=== PATIENT | female | born 1980 | race Caucasian/White ===

== ENCOUNTER 2021-10-23 13:28 | Inpatient (IN) ==
[2021-10-23] MEDS ORDERED: Naloxone 0.4 MG/ML INJ IVP PRN (16:41)
[2021-10-23] MEDS ORDERED: Melatonin 3 MG TABLET PO PRN (16:41)
[2021-10-23] MEDS: Prochlorperazine 10 MG/2 ML VIAL IVP PRN (17:18)
[2021-10-23] MEDS: Ampicillin/Sulbactam 3,000 MG in 0.9 % Sodium Chloride Mini Bag 100 ML IVPB SCH (17:19)
[2021-10-23] MEDS: Ringers Solution, Lactated 1,000 ML IVC SCH (19:16)
[2021-10-23 22:00] LABS: Adenovirus Not Detected (Not Detect); Bordetella Pertussis Not Detected (Not Detect); Chlamydophila pneumoniae Not Detected (Not Detect); Coronavirus 229E Not Detected (Not Detect); Coronavirus HKU1 Not Detected (Not Detect); Coronavirus NL63 Not Detected (Not Detect); Coronavirus OC43 Not Detected (Not Detect); Human Metapneumovirus Not Detected (Not Detect); Human Rhinovirus/Enterovirus Not Detected (Not Detect); Influenza A Subtype 2009 H1 Not Detected (Not Detect); Influenza B Not Detected (Not Detect); Mycoplasma pneumoniae Not Detected (Not Detect); Parainfluenza Virus 1 Not Detected (Not Detect); Parainfluenza Virus 2 Not Detected (Not Detect); Parainfluenza Virus 3 Not Detected (Not Detect); Parainfluenza Virus 4 Not Detected (Not Detect); Respiratory Syncytial Virus Not Detected (Not Detect); SARS-CoV-2 Not Detected (Not Detect)
[2021-10-23] MEDS: clonazePAM 1 MG TABLET PO SCH (22:39)
[2021-10-23] MEDS: Gabapentin 300 MG CAPSULE PO SCH (22:39)
[2021-10-23 23:11] LABS: C.difficile Toxin A/B Gene PCR Not detected (Not detect); Campylobacter by PCR Not detected (Not detect); Enteroaggregative E.coli(EAEC) Not detected (Not detect); Enteropathogenic E.coli(EPEC) Not detected (Not detect); Enterotoxigenic E.coli (ETEC) Not detected (Not detect); Plesiomonas shigelloides PCR Not detected (Not detect); Salmonella PCR Not detected (Not detect); Vibrio PCR Not detected (Not detect); Vibrio cholerae PCR Not detected (Not detect); Yersinia enterocolitica PCR Not detected (Not detect)
[2021-10-23 23:12] LABS: Adenovirus F 40/41 PCR Not detected (Not detect); Astrovirus PCR Not detected (Not detect); Cryptosporidium by PCR Not detected (Not detect); Cyclospora cayetanensis PCR Not detected (Not detect); Entamoeba histolytica PCR Not detected (Not detect); Giardia lamblia PCR Not detected (Not detect); Norovirus GI/GII PCR Not detected (Not detect); Rotavirus A PCR Not detected (Not detect); Sapovirus PCR Not detected (Not detect); Shig/EnteroinvasiveE coli EIEC Not detected (Not detect); Shigalike tox-prod E coli STEC Not detected (Not detect)
[2021-10-24] MEDS: Ampicillin/Sulbactam 3,000 MG in 0.9 % Sodium Chloride Mini Bag 100 ML IVPB SCH ×5 (00:30→23:10)
[2021-10-24] MEDS: Prochlorperazine 10 MG/2 ML VIAL IVP PRN ×2 (00:41→09:29)
[2021-10-24 02:09] LABS: Basophils % 0.4 %; Eosinophils # 0.2 K/mcL (0.0-0.6); Eosinophils % 1.9 %; Hematocrit 31.7 % (35.3-44.9); Immature Granulocytes % 0.4 % (0-4); Lymphocytes # 2.7 K/mcL (0.6-4.6); Lymphocytes % 26.2 %; Mean Corpuscular HGB Conc 34.7 g/dL (31.6-35.5); Mean Corpuscular Hemoglobin 32.3 pg (28.0-33.3); Mean Platelet Volume 11.3 fL (9.4-12.4); Monocytes # 0.7 K/mcL (0.0-1.3); Monocytes % 6.3 %; Neutrophils # 6.8 K/mcL (1.6-8.9); Platelet Count 253 K/mcL (140-400); Red Blood Count 3.41 M/mcL (3.82-4.97); Red Cell Distribution Width 12.2 % (11.5-14.5); Segmented Neutrophils % 64.8 %; White Blood Count 10.5 K/mcL (4.3-11.1)
[2021-10-24 02:16] LABS: INR 1.2; Prothrombin Time 13.3 Seconds (9.4-12.1)
[2021-10-24 02:36] LABS: Alanine Aminotransferase 10 Units/L (7-52); Albumin 2.8 g/dL (3.5-5.7); Albumin/Globulin Ratio 1.2 (1.1-2.2); Alkaline Phosphatase 58 Units/L (34-104); Aspartate Amino Transferase 8 Units/L (13-39); BUN/Creatinine Ratio 17 (6-26); Bilirubin,Direct 0.1 mg/dL (0.0-0.2); Bilirubin,Indirect 0.2 mg/dL (0.0-1.0); Bilirubin,Total 0.3 mg/dL (0.3-1.0); Blood Urea Nitrogen 10 mg/dL (6-20); Calcium 7.9 mg/dL (8.6-10.3); Carbon Dioxide 22 mEq/L (23-29); Chloride 109 mEq/L (98-107); Globulin 2.4 g/dL (2.4-3.5); Glucose 94 mg/dL (70-105); Magnesium 1.7 mg/dL (1.6-2.6); Osmolality,Calculated 285 (280-300); Phosphorous 1.7 mg/dL (2.7-4.5); Potassium 3.3 mEq/L (3.5-5.1); Sodium 138 mEq/L (136-145); Total Protein 5.2 g/dL (6.4-8.9); eGFR For African Americans > 60 (> 60); eGFR For Non-African Americans > 60 (> 60)
[2021-10-24] MEDS: Ringers Solution, Lactated 1,000 ML IVC SCH (05:26)
[2021-10-24] MEDS: *HR* Enoxaparin 40 MG/0.4 ML SYRINGE SQ SCH (05:27)
[2021-10-24] MEDS: Acetaminophen 325 MG TABLET PO PRN (05:33)
[2021-10-24] MEDS: clonazePAM 1 MG TABLET PO SCH ×2 (08:16→23:09)
[2021-10-24] MEDS: Gabapentin 300 MG CAPSULE PO SCH ×3 (08:16→23:10)
[2021-10-24] MEDS ORDERED: Morphine Sulfate 2 MG/ML SYRINGE IVP PRN (11:14)
[2021-10-24] MEDS: tiZANidine 4 MG TABLET PO PRN (12:58)
[2021-10-25] MEDS: Ampicillin/Sulbactam 3,000 MG in 0.9 % Sodium Chloride Mini Bag 100 ML IVPB SCH ×4 (05:50→23:32)
[2021-10-25] MEDS: *HR* Enoxaparin 40 MG/0.4 ML SYRINGE SQ SCH (05:50)
[2021-10-25 06:24] LABS: Basophils # 0.1 K/mcL (0.0-0.2); Basophils % 0.5 %; Eosinophils # 0.1 K/mcL (0.0-0.6); Eosinophils % 1.1 %; Hematocrit 35.3 % (35.3-44.9); Hemoglobin 12.2 g/dL (11.5-15.4); Immature Granulocytes % 1.3 % (0-4); Lymphocytes # 2.4 K/mcL (0.6-4.6); Lymphocytes % 25.2 %; Mean Corpuscular HGB Conc 34.6 g/dL (31.6-35.5); Mean Corpuscular Hemoglobin 31.9 pg (28.0-33.3); Mean Corpuscular Volume 92.4 fL (83.0-100.0); Mean Platelet Volume 10.5 fL (9.4-12.4); Monocytes % 10.1 %; Neutrophils # 5.9 K/mcL (1.6-8.9); Platelet Count 312 K/mcL (140-400); Red Blood Count 3.82 M/mcL (3.82-4.97); Red Cell Distribution Width 12.1 % (11.5-14.5); Segmented Neutrophils % 61.8 %; White Blood Count 9.6 K/mcL (4.3-11.1)
[2021-10-25] MEDS: Gabapentin 300 MG CAPSULE PO SCH ×3 (09:33→21:33)
[2021-10-25] MEDS: clonazePAM 1 MG TABLET PO SCH ×2 (09:33→21:33)
[2021-10-25] MEDS: tiZANidine 4 MG TABLET PO PRN (09:33)
[2021-10-25] MEDS: Prochlorperazine 10 MG/2 ML VIAL IVP PRN ×2 (09:38→21:40)
[2021-10-25] MEDS: Cholestyramine 4 GM POWD.PACK PO SCH (12:27)
[2021-10-25] MEDS: Ringers Solution, Lactated 1,000 ML IVC SCH ×2 (13:45→22:11)
[2021-10-25] MEDS ORDERED: tiZANidine 4 MG TABLET PO PRN (16:51)
[2021-10-25] MEDS ORDERED: Morphine Sulfate 2 MG/ML SYRINGE IVP PRN (16:52)
[2021-10-26] MEDS: Ampicillin/Sulbactam 3,000 MG in 0.9 % Sodium Chloride Mini Bag 100 ML IVPB SCH (05:43)
[2021-10-26] MEDS: *HR* Enoxaparin 40 MG/0.4 ML SYRINGE SQ SCH (05:44)
[2021-10-26] MEDS: Cholestyramine 4 GM POWD.PACK PO SCH ×2 (05:44→17:26)
[2021-10-26] MEDS: clonazePAM 1 MG TABLET PO SCH ×2 (08:21→20:35)
[2021-10-26] MEDS: Gabapentin 300 MG CAPSULE PO SCH ×3 (08:21→20:36)
[2021-10-26 08:46] LABS: Basophils # 0.1 K/mcL (0.0-0.2); Basophils % 0.6 %; Eosinophils # 0.1 K/mcL (0.0-0.6); Eosinophils % 0.6 %; Hematocrit 34.2 % (35.3-44.9); Hemoglobin 11.6 g/dL (11.5-15.4); Immature Granulocytes % 1.3 % (0-4); Lymphocytes % 31.2 %; Mean Corpuscular HGB Conc 33.9 g/dL (31.6-35.5); Mean Corpuscular Hemoglobin 31.4 pg (28.0-33.3); Mean Corpuscular Volume 92.4 fL (83.0-100.0); Mean Platelet Volume 10.3 fL (9.4-12.4); Monocytes # 1.5 K/mcL (0.0-1.3); Neutrophils # 4.3 K/mcL (1.6-8.9); Nucleated Red Blood Cells 0.3 /100 WBC (0); Platelet Count 306 K/mcL (140-400); Red Cell Distribution Width 12.1 % (11.5-14.5); Segmented Neutrophils % 49.3 %; White Blood Count 8.8 K/mcL (4.3-11.1)
[2021-10-26 08:54] LABS: Lymphocytes # 2.8 K/mcL (0.6-4.6)
[2021-10-26] MEDS ORDERED: Ringers Solution, Lactated 1,000 ML IVC SCH (09:00)
[2021-10-26 09:08] LABS: BUN/Creatinine Ratio 4 (6-26); Blood Urea Nitrogen 2 mg/dL (6-20); Calcium 7.9 mg/dL (8.6-10.3); Carbon Dioxide 28 mEq/L (23-29); Chloride 102 mEq/L (98-107); Glucose 118 mg/dL (70-105); Osmolality,Calculated 281 (280-300); Potassium 2.8 mEq/L (3.5-5.1); Sodium 137 mEq/L (136-145); eGFR For African Americans > 60 (> 60); eGFR For Non-African Americans > 60 (> 60)
[2021-10-26 09:28] LABS: Platelet Estimate Normal (Normal)
[2021-10-26] MEDS: cefTRIAXone 1,000 MG in 0.9 % Sodium Chloride 10 ML IVP SCH (11:47)
[2021-10-26] MEDS: Ringers Solution, Lactated 1,000 ML IVC SCH ×2 (11:49→17:26)
[2021-10-26] MEDS ORDERED: Cholestyramine 4 GM POWD.PACK PO SCH (15:00)
[2021-10-26] MEDS: MetroNIDAZOLE 500 MG/100 ML 500 MG/100 ML BAG IVPB SCH ×2 (15:38→23:55)
[2021-10-26 16:23] LABS: Bilirubin,Urine Negative (Negative); Blood,Urine Negative (Negative); Clarity,Urine Clear (Clear); Color,Urine Colorless (Yellow); Glucose,Urine (UA) Normal (Normal); Ketones,Urine 40 mg/dL (Negative); Leukocyte Esterase,Urine Negative (Negative); Nitrite,Urine Negative (Negative); Protein,Urine Negative (Neg-Trace); Specific Gravity,Urine 1.011 (1.010-1.025); Urobilinogen,Urine Normal (Normal)
[2021-10-27] MEDS: *HR* Enoxaparin 40 MG/0.4 ML SYRINGE SQ SCH (05:17)
[2021-10-27] MEDS: Prochlorperazine 10 MG/2 ML VIAL IVP PRN (05:33)
[2021-10-27] MEDS: Cholestyramine 4 GM POWD.PACK PO SCH ×2 (06:26→17:11)
[2021-10-27 07:27] LABS: Hematocrit 32.2 % (35.3-44.9); Hemoglobin 10.7 g/dL (11.5-15.4); Mean Corpuscular HGB Conc 33.2 g/dL (31.6-35.5); Mean Corpuscular Hemoglobin 31.2 pg (28.0-33.3); Mean Corpuscular Volume 93.9 fL (83.0-100.0); Mean Platelet Volume 10.2 fL (9.4-12.4); Monocytes # 1.2 K/mcL (0.0-1.3); Nucleated Red Blood Cells 0.2 /100 WBC (0); Platelet Count 348 K/mcL (140-400); Red Blood Count 3.43 M/mcL (3.82-4.97); Red Cell Distribution Width 12.2 % (11.5-14.5); White Blood Count 9.9 K/mcL (4.3-11.1)
[2021-10-27 07:50] LABS: BUN/Creatinine Ratio 8 (6-26); Blood Urea Nitrogen 4 mg/dL (6-20); Calcium 8.1 mg/dL (8.6-10.3); Carbon Dioxide 25 mEq/L (23-29); Chloride 103 mEq/L (98-107); Glucose 131 mg/dL (70-105); Osmolality,Calculated 281 (280-300); Potassium 3.4 mEq/L (3.5-5.1); Sodium 136 mEq/L (136-145); eGFR For African Americans > 60 (> 60); eGFR For Non-African Americans > 60 (> 60)
[2021-10-27 08:06] LABS: Eosinophils # 0.2 K/mcL (0.0-0.6); Lymphocytes # 1.8 K/mcL (0.6-4.6); Neutrophils # 6.7 K/mcL (1.6-8.9); Platelet Estimate Normal (Normal)
[2021-10-27] MEDS: Gabapentin 300 MG CAPSULE PO SCH ×3 (08:42→20:24)
[2021-10-27] MEDS: MetroNIDAZOLE 500 MG/100 ML 500 MG/100 ML BAG IVPB SCH ×3 (08:42→23:49)
[2021-10-27] MEDS: Ringers Solution, Lactated 1,000 ML IVC SCH ×2 (08:42→20:24)
[2021-10-27] MEDS: clonazePAM 1 MG TABLET PO SCH ×2 (08:42→21:58)
[2021-10-27] MEDS: cefTRIAXone 1,000 MG in 0.9 % Sodium Chloride 10 ML IVP SCH (11:33)
[2021-10-28 03:23] LABS: Basophils % 0.3 %; Eosinophils # 0.2 K/mcL (0.0-0.6); Eosinophils % 2.1 %; Hematocrit 30.6 % (35.3-44.9); Hemoglobin 10.3 g/dL (11.5-15.4); Immature Granulocytes % 0.6 % (0-4); Lymphocytes # 3.3 K/mcL (0.6-4.6); Lymphocytes % 34.1 %; Mean Corpuscular HGB Conc 33.7 g/dL (31.6-35.5); Mean Corpuscular Hemoglobin 31.5 pg (28.0-33.3); Mean Corpuscular Volume 93.6 fL (83.0-100.0); Mean Platelet Volume 9.9 fL (9.4-12.4); Monocytes # 0.7 K/mcL (0.0-1.3); Monocytes % 7.2 %; Neutrophils # 5.3 K/mcL (1.6-8.9); Platelet Count 341 K/mcL (140-400); Red Blood Count 3.27 M/mcL (3.82-4.97); Red Cell Distribution Width 12.1 % (11.5-14.5); Segmented Neutrophils % 55.7 %; White Blood Count 9.6 K/mcL (4.3-11.1)
[2021-10-28 03:44] LABS: BUN/Creatinine Ratio 14 (6-26); Blood Urea Nitrogen 6 mg/dL (6-20); Calcium 7.8 mg/dL (8.6-10.3); Carbon Dioxide 23 mEq/L (23-29); Chloride 105 mEq/L (98-107); Glucose 84 mg/dL (70-105); Osmolality,Calculated 283 (280-300); Potassium 3.2 mEq/L (3.5-5.1); Sodium 138 mEq/L (136-145); eGFR For African Americans > 60 (> 60); eGFR For Non-African Americans > 60 (> 60)
[2021-10-28] MEDS: *HR* Enoxaparin 40 MG/0.4 ML SYRINGE SQ SCH (05:05)
[2021-10-28] MEDS: Acetaminophen 325 MG TABLET PO PRN (06:00)
[2021-10-28] MEDS: Ringers Solution, Lactated 1,000 ML IVC SCH ×3 (06:01→19:09)
[2021-10-28] MEDS: Cholestyramine 4 GM POWD.PACK PO SCH ×2 (06:22→16:31)
[2021-10-28] MEDS: clonazePAM 1 MG TABLET PO SCH ×2 (08:20→21:48)
[2021-10-28] MEDS: Gabapentin 300 MG CAPSULE PO SCH ×3 (08:20→21:47)
[2021-10-28] MEDS: MetroNIDAZOLE 500 MG/100 ML 500 MG/100 ML BAG IVPB SCH (08:20)
[2021-10-28] MEDS ORDERED: Potassium Chloride Elixir 20 MEQ/15 ML UDC PO ONE (09:25)
[2021-10-28] MEDS: cefTRIAXone 1,000 MG in 0.9 % Sodium Chloride 10 ML IVP SCH (11:31)
[2021-10-28] MEDS: metroNIDAZOLE 500 MG TABLET PO SCH ×2 (14:29→21:46)
[2021-10-28] MEDS ORDERED: Ringers Solution, Lactated 500 ML IVC ONE ×2 (18:58→19:15)
[2021-10-29] MEDS: Ringers Solution, Lactated 1,000 ML IVC SCH ×3 (01:38→17:26)
[2021-10-29] MEDS: *HR* Enoxaparin 40 MG/0.4 ML SYRINGE SQ SCH (05:46)
[2021-10-29] MEDS: Cholestyramine 4 GM POWD.PACK PO SCH ×2 (05:46→15:56)
[2021-10-29] MEDS ORDERED: *HR* OxyCODONE Immed Rel 5 MG TABLET PO PRN (08:01)
[2021-10-29] MEDS: metroNIDAZOLE 500 MG TABLET PO SCH ×3 (08:54→23:43)
[2021-10-29] MEDS: Gabapentin 300 MG CAPSULE PO SCH ×3 (08:55→23:43)
[2021-10-29] MEDS: clonazePAM 1 MG TABLET PO SCH ×2 (08:55→23:43)
[2021-10-29] MEDS: cefTRIAXone 1,000 MG in 0.9 % Sodium Chloride 10 ML IVP SCH (12:33)
[2021-10-29 15:16] LABS: Basophils % 0.4 %; Eosinophils # 0.2 K/mcL (0.0-0.6); Eosinophils % 2.9 %; Hematocrit 31.5 % (35.3-44.9); Hemoglobin 10.5 g/dL (11.5-15.4); Immature Granulocytes % 0.8 % (0-4); Lymphocytes # 2.3 K/mcL (0.6-4.6); Lymphocytes % 44.7 %; Mean Corpuscular HGB Conc 33.3 g/dL (31.6-35.5); Mean Corpuscular Hemoglobin 31.2 pg (28.0-33.3); Mean Corpuscular Volume 93.5 fL (83.0-100.0); Mean Platelet Volume 10.2 fL (9.4-12.4); Monocytes # 0.4 K/mcL (0.0-1.3); Monocytes % 8.6 %; Neutrophils # 2.2 K/mcL (1.6-8.9); Platelet Count 331 K/mcL (140-400); Red Blood Count 3.37 M/mcL (3.82-4.97); Red Cell Distribution Width 12.2 % (11.5-14.5); Segmented Neutrophils % 42.6 %; White Blood Count 5.1 K/mcL (4.3-11.1)
[2021-10-29 15:37] LABS: BUN/Creatinine Ratio 6 (6-26); Blood Urea Nitrogen 3 mg/dL (6-20); Carbon Dioxide 28 mEq/L (23-29); Chloride 108 mEq/L (98-107); Glucose 102 mg/dL (70-105); Osmolality,Calculated 291 (280-300); Potassium 3.5 mEq/L (3.5-5.1); Sodium 142 mEq/L (136-145); eGFR For African Americans > 60 (> 60); eGFR For Non-African Americans > 60 (> 60)
[2021-10-29] MEDS ORDERED: SODIUM CHLORIDE/NAHCO3/KCL/PEG 4,000 ML SOLN.RECON PO ONE (17:00)
[2021-10-29] MEDS: Topiramate 25 MG TABLET PO SCH (23:43)
[2021-10-30] MEDS: Ringers Solution, Lactated 1,000 ML IVC SCH ×2 (02:27→09:46)
[2021-10-30 04:16] LABS: Basophils % 0.6 %; Eosinophils # 0.1 K/mcL (0.0-0.6); Eosinophils % 1.9 %; Hematocrit 31.8 % (35.3-44.9); Hemoglobin 10.3 g/dL (11.5-15.4); Immature Granulocytes % 0.7 % (0-4); Lymphocytes # 3.3 K/mcL (0.6-4.6); Lymphocytes % 49.6 %; Mean Corpuscular HGB Conc 32.4 g/dL (31.6-35.5); Mean Corpuscular Volume 95.8 fL (83.0-100.0); Mean Platelet Volume 9.8 fL (9.4-12.4); Monocytes # 0.4 K/mcL (0.0-1.3); Monocytes % 6.3 %; Neutrophils # 2.7 K/mcL (1.6-8.9); Platelet Count 398 K/mcL (140-400); Red Blood Count 3.32 M/mcL (3.82-4.97); Red Cell Distribution Width 12.2 % (11.5-14.5); Segmented Neutrophils % 40.9 %; White Blood Count 6.7 K/mcL (4.3-11.1)
[2021-10-30 04:29] LABS: BUN/Creatinine Ratio 4 (6-26); Blood Urea Nitrogen 2 mg/dL (6-20); C-Reactive Protein 30 mg/L (Less than 10); Calcium 7.9 mg/dL (8.6-10.3); Carbon Dioxide 24 mEq/L (23-29); Chloride 110 mEq/L (98-107); Glucose 103 mg/dL (70-105); Osmolality,Calculated 286 (280-300); Potassium 3.3 mEq/L (3.5-5.1); Sodium 140 mEq/L (136-145); eGFR For African Americans > 60 (> 60); eGFR For Non-African Americans > 60 (> 60)
[2021-10-30] MEDS: *HR* Enoxaparin 40 MG/0.4 ML SYRINGE SQ SCH (05:09)
[2021-10-30] MEDS: Cholestyramine 4 GM POWD.PACK PO SCH ×2 (05:09→16:18)
[2021-10-30] MEDS: clonazePAM 1 MG TABLET PO SCH ×2 (09:21→23:03)
[2021-10-30] MEDS: metroNIDAZOLE 500 MG TABLET PO SCH ×3 (09:21→23:43)
[2021-10-30] MEDS: Gabapentin 300 MG CAPSULE PO SCH ×3 (09:21→23:43)
[2021-10-30] MEDS: cefTRIAXone 1,000 MG in 0.9 % Sodium Chloride 10 ML IVP SCH (12:44)
[2021-10-30] MEDS ORDERED: Lidocaine -MPF 2% 5 ML VIAL SQ ONE (13:32)
[2021-10-30] MEDS ORDERED: *HR* Propofol 200 MG/20 ML VIAL IVP ONE (13:32)
[2021-10-30] MEDS ORDERED: *HR* Propofol 500 MG/50 ML BOTTLE IVP ONE (13:32)
[2021-10-30] MEDS ORDERED: 0.9 % Sodium Chloride 1,000 ML IVC ONE (23:15)
[2021-10-30] MEDS: Topiramate 25 MG TABLET PO SCH (23:43)
[2021-10-31 04:19] VITALS: O2SAT 96
[2021-10-31] MEDS: *HR* Enoxaparin 40 MG/0.4 ML SYRINGE SQ SCH (05:26)
[2021-10-31 08:04] VITALS: BP 116/78; PULSE 66; TEMP 98.7
[2021-10-31] MEDS: Cholestyramine 4 GM POWD.PACK PO SCH (09:19)
[2021-10-31] MEDS: metroNIDAZOLE 500 MG TABLET PO SCH (09:19)
[2021-10-31] MEDS: clonazePAM 1 MG TABLET PO SCH (09:19)
[2021-10-31] MEDS: Gabapentin 300 MG CAPSULE PO SCH (09:19)
[2021-10-31] MEDS: cefTRIAXone 1,000 MG in 0.9 % Sodium Chloride 10 ML IVP SCH (12:32)
[2021-11-04 11:49] LABS: Saccharomyces cerevisiae IgA 3.5 Units (0.0-24.9)
[2021-11-05 23:43] LABS: ANCA IFA Titer <1:20 (<1:20)
[2021-11-06 15:09] LABS: ANCA IFA Pattern NONE DETECTED (None Detected); Serine Protease-3 Antibody 2 AU/mL (0-19)
== END 2021-10-31 13:33 | disposition home or self-care (01) | DRG 872 ==
LOC: 3ANU → SUATTDRO 16:41
PROVIDERS: ADMIT Internal Medicine; ATTEND Internal Medicine
PROC: ENDOCBX (2021-10-30 13:00)

== ENCOUNTER 2021-11-05 07:18 | Inpatient (IN) ==
[2021-11-05] MEDS ORDERED: Ondansetron 4 MG/2 ML VIAL IVP ONE (08:36)
[2021-11-05] MEDS: 0.9 % Sodium Chloride 1,000 ML IVC SCH ×2 (08:47→09:52)
[2021-11-05 09:08] LABS: Basophils # 0.1 K/mcL (0.0-0.2); Basophils % 0.7 %; Eosinophils # 0.2 K/mcL (0.0-0.6); Eosinophils % 1.6 %; Immature Granulocytes % 0.4 % (0-4); Lymphocytes # 3.2 K/mcL (0.6-4.6); Lymphocytes % 25.3 %; Mean Corpuscular HGB Conc 31.8 g/dL (31.6-35.5); Mean Corpuscular Hemoglobin 30.7 pg (28.0-33.3); Mean Corpuscular Volume 96.6 fL (83.0-100.0); Mean Platelet Volume 9.8 fL (9.4-12.4); Monocytes # 0.8 K/mcL (0.0-1.3); Monocytes % 6.7 %; Platelet Count 726 K/mcL (140-400); Red Blood Count 4.14 M/mcL (3.82-4.97); Red Cell Distribution Width 12.8 % (11.5-14.5); Segmented Neutrophils % 65.3 %
[2021-11-05 09:13] LABS: Hemoglobin 12.7 g/dL (11.5-15.4); Neutrophils # 8.2 K/mcL (1.6-8.9); White Blood Count 12.5 K/mcL (4.3-11.1)
[2021-11-05 09:28] LABS: Alanine Aminotransferase 27 Units/L (7-52); Albumin 3.7 g/dL (3.5-5.7); Albumin/Globulin Ratio 1.3 (1.1-2.2); Alkaline Phosphatase 80 Units/L (34-104); Aspartate Amino Transferase 21 Units/L (13-39); BUN/Creatinine Ratio 13 (6-26); Bilirubin,Indirect 0.3 mg/dL (0.0-1.0); Bilirubin,Total 0.3 mg/dL (0.3-1.0); Blood Urea Nitrogen 11 mg/dL (6-20); Calcium 9.2 mg/dL (8.6-10.3); Carbon Dioxide 25 mEq/L (23-29); Chloride 103 mEq/L (98-107); Globulin 2.8 g/dL (2.4-3.5); Glucose 148 mg/dL (70-105); Lipase 26 Units/L (11-82); Osmolality,Calculated 284 (280-300); Potassium 4.6 mEq/L (3.5-5.1); Sodium 136 mEq/L (136-145); Total Protein 6.5 g/dL (6.4-8.9); eGFR For African Americans > 60 (> 60); eGFR For Non-African Americans > 60 (> 60)
[2021-11-05] MEDS ORDERED: 0.9 % Sodium Chloride 1,000 ML IVC ONE (10:01)
[2021-11-05] MEDS ORDERED: Isovue-370 500 ML BOTTLE IVP ONE (10:01)
[2021-11-05 10:04] LABS: Bacteria,Urine Few per hpf (None-Few); Bilirubin,Urine Negative (Negative); Blood,Urine Negative (Negative); Clarity,Urine Turbid (Clear); Color,Urine Light-Yellow (Yellow); Glucose,Urine (UA) Normal (Normal); Hyaline Casts,Urine Moderate per lpf (None Seen); Ketones,Urine Negative (Negative); Leukocyte Esterase,Urine Moderate (Negative); Mucus,Urine Few per lpf (None-Few); Nitrite,Urine Negative (Negative); Protein,Urine Trace mg/dL (Neg-Trace); RBC,Urine 0-3 per hpf (0-3); Specific Gravity,Urine 1.011 (1.010-1.025); Squamous Epithelial Cell,Urine Moderate per hpf (None-Few); Urobilinogen,Urine Normal (Normal)
[2021-11-05] MEDS ORDERED: Naloxone 0.4 MG/ML INJ IVP PRN (14:45)
[2021-11-05] MEDS ORDERED: Melatonin 3 MG TABLET PO PRN (14:45)
[2021-11-05 15:18] LABS: C-Reactive Protein 20 mg/L (Less than 10)
[2021-11-05] MEDS: tiZANidine 4 MG TABLET PO SCH ×2 (15:23→22:32)
[2021-11-05] MEDS: *HR* OxyCODONE Immed Rel 5 MG TABLET PO PRN (15:23)
[2021-11-05] MEDS: Ringers Solution, Lactated 1,000 ML IVC SCH ×2 (15:23→22:31)
[2021-11-05 15:35] LABS: Adenovirus F 40/41 PCR Not detected (Not detect); Astrovirus PCR Not detected (Not detect); C.difficile Toxin A/B Gene PCR Not detected (Not detect); Campylobacter by PCR Not detected (Not detect); Cryptosporidium by PCR Not detected (Not detect); Cyclospora cayetanensis PCR Not detected (Not detect); E. coli O157 by PCR Not detected (Not detect); Entamoeba histolytica PCR Not detected (Not detect); Enteroaggregative E.coli(EAEC) Not detected (Not detect); Enteropathogenic E.coli(EPEC) Not detected (Not detect); Enterotoxigenic E.coli (ETEC) Not detected (Not detect); Giardia lamblia PCR Not detected (Not detect); Norovirus GI/GII PCR Not detected (Not detect); Plesiomonas shigelloides PCR Not detected (Not detect); Rotavirus A PCR Not detected (Not detect); Salmonella PCR Not detected (Not detect); Sapovirus PCR Not detected (Not detect); Shig/EnteroinvasiveE coli EIEC Not detected (Not detect); Shigalike tox-prod E coli STEC Not detected (Not detect); Vibrio PCR Not detected (Not detect); Vibrio cholerae PCR Not detected (Not detect); Yersinia enterocolitica PCR Not detected (Not detect)
[2021-11-05] MEDS: MethylPREDNISolone 40 MG/ML VIAL IVP SCH (17:24)
[2021-11-05] MEDS: clonazePAM 1 MG TABLET PO SCH (22:31)
[2021-11-05] MEDS: Topiramate 25 MG TABLET PO SCH (22:31)
[2021-11-05] MEDS: Gabapentin 300 MG CAPSULE PO SCH ×2 (22:32)
[2021-11-06] MEDS: MethylPREDNISolone 40 MG/ML VIAL IVP SCH ×2 (04:49→16:11)
[2021-11-06] MEDS: *HR* Enoxaparin 40 MG/0.4 ML SYRINGE SQ SCH (04:49)
[2021-11-06] MEDS: Ringers Solution, Lactated 1,000 ML IVC SCH (04:50)
[2021-11-06] MEDS: Ondansetron 4 MG/2 ML VIAL IVP PRN (04:51)
[2021-11-06] MEDS: *HR* OxyCODONE Immed Rel 5 MG TABLET PO PRN ×4 (04:52→20:16)
[2021-11-06 06:24] LABS: Hematocrit 38.2 % (35.3-44.9); Hemoglobin 12.3 g/dL (11.5-15.4); Mean Corpuscular HGB Conc 32.2 g/dL (31.6-35.5); Mean Corpuscular Hemoglobin 30.9 pg (28.0-33.3); Mean Platelet Volume 10.6 fL (9.4-12.4); Platelet Count 416 K/mcL (140-400); Red Blood Count 3.98 M/mcL (3.82-4.97); Red Cell Distribution Width 12.6 % (11.5-14.5); White Blood Count 8.4 K/mcL (4.3-11.1)
[2021-11-06 06:32] LABS: INR 1.2; Prothrombin Time 13.3 Seconds (9.4-12.1)
[2021-11-06 06:33] LABS: BUN/Creatinine Ratio 9 (6-26); Blood Urea Nitrogen 5 mg/dL (6-20); Calcium 8.9 mg/dL (8.6-10.3); Carbon Dioxide 22 mEq/L (23-29); Chloride 107 mEq/L (98-107); Glucose 123 mg/dL (70-105); Osmolality,Calculated 283 (280-300); Phosphorous 3.7 mg/dL (2.7-4.5); Potassium 4.1 mEq/L (3.5-5.1); Sodium 137 mEq/L (136-145); eGFR For African Americans > 60 (> 60); eGFR For Non-African Americans > 60 (> 60)
[2021-11-06] MEDS: clonazePAM 1 MG TABLET PO SCH ×2 (08:54→19:20)
[2021-11-06] MEDS: tiZANidine 4 MG TABLET PO SCH ×3 (08:54→19:19)
[2021-11-06] MEDS: Gabapentin 300 MG CAPSULE PO SCH ×3 (08:54→19:20)
[2021-11-06] MEDS: Topiramate 25 MG TABLET PO SCH (19:20)
[2021-11-07] MEDS: *HR* OxyCODONE Immed Rel 5 MG TABLET PO PRN ×4 (04:03→21:20)
[2021-11-07] MEDS: Ondansetron 4 MG/2 ML VIAL IVP PRN (04:04)
[2021-11-07] MEDS: MethylPREDNISolone 40 MG/ML VIAL IVP SCH ×2 (05:16→16:28)
[2021-11-07] MEDS: *HR* Enoxaparin 40 MG/0.4 ML SYRINGE SQ SCH (05:18)
[2021-11-07 07:34] LABS: Alanine Aminotransferase 30 Units/L (7-52); Alkaline Phosphatase 76 Units/L (34-104); Aspartate Amino Transferase 21 Units/L (13-39); BUN/Creatinine Ratio 8 (6-26); Bilirubin,Total 0.2 mg/dL (0.3-1.0); Blood Urea Nitrogen 6 mg/dL (6-20); Calcium 8.9 mg/dL (8.6-10.3); Carbon Dioxide 24 mEq/L (23-29); Chloride 104 mEq/L (98-107); Glucose 112 mg/dL (70-105); Osmolality,Calculated 284 (280-300); Potassium 3.5 mEq/L (3.5-5.1); Sodium 138 mEq/L (136-145); eGFR For African Americans > 60 (> 60); eGFR For Non-African Americans > 60 (> 60)
[2021-11-07 07:36] LABS: Albumin 3.5 g/dL (3.5-5.7); Albumin/Globulin Ratio 1.4 (1.1-2.2); Globulin 2.5 g/dL (2.4-3.5)
[2021-11-07 07:42] LABS: Hematocrit 36.2 % (35.3-44.9); Hemoglobin 11.7 g/dL (11.5-15.4); Mean Corpuscular HGB Conc 32.3 g/dL (31.6-35.5); Mean Corpuscular Hemoglobin 31.1 pg (28.0-33.3); Mean Corpuscular Volume 96.3 fL (83.0-100.0); Platelet Count 678 K/mcL (140-400); Red Blood Count 3.76 M/mcL (3.82-4.97); Red Cell Distribution Width 12.8 % (11.5-14.5); White Blood Count 21.8 K/mcL (4.3-11.1)
[2021-11-07] MEDS: tiZANidine 4 MG TABLET PO SCH ×3 (08:25→20:32)
[2021-11-07] MEDS: clonazePAM 1 MG TABLET PO SCH ×2 (08:25→20:32)
[2021-11-07] MEDS: Gabapentin 300 MG CAPSULE PO SCH ×3 (08:25→20:33)
[2021-11-07] MEDS: Topiramate 25 MG TABLET PO SCH (20:32)
[2021-11-08 02:18] LABS: Hematocrit 36.8 % (35.3-44.9); Hemoglobin 11.8 g/dL (11.5-15.4); Mean Corpuscular HGB Conc 32.1 g/dL (31.6-35.5); Mean Corpuscular Volume 96.6 fL (83.0-100.0); Platelet Count 653 K/mcL (140-400); Red Blood Count 3.81 M/mcL (3.82-4.97); Red Cell Distribution Width 12.8 % (11.5-14.5); White Blood Count 18.2 K/mcL (4.3-11.1)
[2021-11-08 02:38] LABS: BUN/Creatinine Ratio 16 (6-26); Blood Urea Nitrogen 12 mg/dL (6-20); Calcium 8.8 mg/dL (8.6-10.3); Carbon Dioxide 22 mEq/L (23-29); Chloride 104 mEq/L (98-107); Glucose 157 mg/dL (70-105); Osmolality,Calculated 287 (280-300); Potassium 3.8 mEq/L (3.5-5.1); Sodium 137 mEq/L (136-145); eGFR For African Americans > 60 (> 60); eGFR For Non-African Americans > 60 (> 60)
[2021-11-08] MEDS: *HR* OxyCODONE Immed Rel 5 MG TABLET PO PRN ×4 (03:58→22:36)
[2021-11-08] MEDS: *HR* Enoxaparin 40 MG/0.4 ML SYRINGE SQ SCH (05:58)
[2021-11-08] MEDS: MethylPREDNISolone 40 MG/ML VIAL IVP SCH ×2 (05:58→17:42)
[2021-11-08] MEDS: tiZANidine 4 MG TABLET PO SCH ×3 (08:24→20:47)
[2021-11-08] MEDS: Gabapentin 300 MG CAPSULE PO SCH ×3 (08:25→20:47)
[2021-11-08] MEDS: clonazePAM 1 MG TABLET PO SCH ×2 (08:25→20:48)
[2021-11-08] MEDS: 0.9 % Sodium Chloride 1,000 ML IVC SCH ×2 (10:29→20:47)
[2021-11-08] MEDS: Topiramate 25 MG TABLET PO SCH (20:48)
[2021-11-09] MEDS: *HR* OxyCODONE Immed Rel 5 MG TABLET PO PRN ×5 (05:59→22:34)
[2021-11-09] MEDS: MethylPREDNISolone 40 MG/ML VIAL IVP SCH ×2 (05:59→17:08)
[2021-11-09] MEDS: *HR* Enoxaparin 40 MG/0.4 ML SYRINGE SQ SCH (05:59)
[2021-11-09] MEDS: 0.9 % Sodium Chloride 1,000 ML IVC SCH ×2 (06:00→17:10)
[2021-11-09] MEDS: clonazePAM 1 MG TABLET PO SCH ×2 (08:49→21:28)
[2021-11-09] MEDS: tiZANidine 4 MG TABLET PO SCH ×3 (08:49→21:28)
[2021-11-09] MEDS: *HR* OxyCODONE/APAP 7.5/325 TABLET PO PRN ×2 (08:50→17:14)
[2021-11-09] MEDS: Gabapentin 300 MG CAPSULE PO SCH ×2 (08:50→21:28)
[2021-11-09 12:48] LABS: Hematocrit 39.6 % (35.3-44.9); Hemoglobin 12.9 g/dL (11.5-15.4); Mean Corpuscular HGB Conc 32.6 g/dL (31.6-35.5); Mean Corpuscular Hemoglobin 31.3 pg (28.0-33.3); Mean Corpuscular Volume 96.1 fL (83.0-100.0); Mean Platelet Volume 9.8 fL (9.4-12.4); Platelet Count 664 K/mcL (140-400); Red Blood Count 4.12 M/mcL (3.82-4.97); Red Cell Distribution Width 12.7 % (11.5-14.5); White Blood Count 9.5 K/mcL (4.3-11.1)
[2021-11-09 13:38] LABS: Alanine Aminotransferase 92 Units/L (7-52); Albumin 3.6 g/dL (3.5-5.7); Albumin/Globulin Ratio 1.3 (1.1-2.2); Alkaline Phosphatase 82 Units/L (34-104); Aspartate Amino Transferase 44 Units/L (13-39); BUN/Creatinine Ratio 13 (6-26); Bilirubin,Total 0.2 mg/dL (0.3-1.0); Blood Urea Nitrogen 9 mg/dL (6-20); Calcium 9.1 mg/dL (8.6-10.3); Carbon Dioxide 21 mEq/L (23-29); Chloride 106 mEq/L (98-107); Globulin 2.8 g/dL (2.4-3.5); Glucose 153 mg/dL (70-105); Magnesium 2.1 mg/dL (1.6-2.6); Osmolality,Calculated 288 (280-300); Phosphorous 2.7 mg/dL (2.7-4.5); Potassium 3.7 mEq/L (3.5-5.1); Sodium 138 mEq/L (136-145); Total Protein 6.4 g/dL (6.4-8.9); eGFR For African Americans > 60 (> 60); eGFR For Non-African Americans > 60 (> 60)
[2021-11-09 13:48] LABS: C-Reactive Protein < 5 mg/L (Less than 10)
[2021-11-09] MEDS ORDERED: INFLIXIMAB ABDA IVPB ONE (17:00)
[2021-11-09] MEDS ORDERED: SODIUM CHLORIDE 0.9% IVPB ONE (17:00)
[2021-11-09] MEDS: Topiramate 25 MG TABLET PO SCH (21:28)
[2021-11-10] MEDS: *HR* OxyCODONE/APAP 7.5/325 TABLET PO PRN ×2 (02:27→12:54)
[2021-11-10] MEDS: 0.9 % Sodium Chloride 1,000 ML IVC SCH ×2 (02:28→16:30)
[2021-11-10 04:28] LABS: QuantiFERON Mitogen minus NIL 3.03 IU/mL
[2021-11-10] MEDS: *HR* Enoxaparin 40 MG/0.4 ML SYRINGE SQ SCH (05:34)
[2021-11-10] MEDS: MethylPREDNISolone 40 MG/ML VIAL IVP SCH ×2 (05:34→16:22)
[2021-11-10 05:51] LABS: Alanine Aminotransferase 83 Units/L (7-52); Albumin 3.3 g/dL (3.5-5.7); Albumin/Globulin Ratio 1.3 (1.1-2.2); Alkaline Phosphatase 72 Units/L (34-104); Aspartate Amino Transferase 28 Units/L (13-39); BUN/Creatinine Ratio 13 (6-26); Bilirubin,Total 0.2 mg/dL (0.3-1.0); Blood Urea Nitrogen 8 mg/dL (6-20); Calcium 8.7 mg/dL (8.6-10.3); Carbon Dioxide 24 mEq/L (23-29); Chloride 107 mEq/L (98-107); Globulin 2.6 g/dL (2.4-3.5); Glucose 96 mg/dL (70-105); Osmolality,Calculated 284 (280-300); Sodium 138 mEq/L (136-145); Total Protein 5.9 g/dL (6.4-8.9); eGFR For African Americans > 60 (> 60); eGFR For Non-African Americans > 60 (> 60)
[2021-11-10] MEDS: clonazePAM 1 MG TABLET PO SCH ×2 (08:28→20:46)
[2021-11-10] MEDS: tiZANidine 4 MG TABLET PO SCH ×3 (08:28→20:46)
[2021-11-10] MEDS: Gabapentin 300 MG CAPSULE PO SCH ×3 (08:28→20:46)
[2021-11-10 11:21] LABS: QuantiFERON NIL 0.01 IU/mL; QuantiFERON-TB Gold In-Tube NEGATIVE (Negative)
[2021-11-10] MEDS: Topiramate 25 MG TABLET PO SCH (20:46)
[2021-11-11] MEDS: *HR* OxyCODONE/APAP 7.5/325 TABLET PO PRN (02:44)
[2021-11-11 06:15] LABS: BUN/Creatinine Ratio 20 (6-26); Blood Urea Nitrogen 14 mg/dL (6-20); Calcium 8.9 mg/dL (8.6-10.3); Carbon Dioxide 24 mEq/L (23-29); Chloride 106 mEq/L (98-107); Glucose 90 mg/dL (70-105); Osmolality,Calculated 284 (280-300); Potassium 3.9 mEq/L (3.5-5.1); Sodium 137 mEq/L (136-145); eGFR For African Americans > 60 (> 60); eGFR For Non-African Americans > 60 (> 60)
[2021-11-11] MEDS: MethylPREDNISolone 40 MG/ML VIAL IVP SCH (06:24)
[2021-11-11] MEDS: *HR* Enoxaparin 40 MG/0.4 ML SYRINGE SQ SCH (06:24)
[2021-11-11] MEDS: clonazePAM 1 MG TABLET PO SCH (09:12)
[2021-11-11] MEDS: Gabapentin 300 MG CAPSULE PO SCH (09:12)
[2021-11-11] MEDS: tiZANidine 4 MG TABLET PO SCH (09:12)
[2021-11-11 10:36] VITALS: BP 92/60; PULSE 81; TEMP 98; O2SAT 92
== END 2021-11-11 11:29 | disposition home or self-care (01) | DRG 392 ==
LOC: 3BNU 07:18 → EMEROOARM 07:18 → SUATTDRO 12:16 → 3BNU 13:10
PROVIDERS: ADMIT Family Medicine; ATTEND Family Medicine

== ENCOUNTER 2021-12-04 11:31 | Observation (INO) ==
[2021-12-04] MEDS ORDERED: 0.9 % Sodium Chloride 1,000 ML IV ONE (12:01)
[2021-12-04] MEDS ORDERED: Isovue-370 500 ML BOTTLE IVP ONE (12:19)
[2021-12-04 12:20] LABS: Basophils % 0.2 %; Eosinophils % 0.1 %; Hemoglobin 14.3 g/dL (11.5-15.4); Immature Granulocytes % 0.5 % (0-4); Lymphocytes # 1.3 K/mcL (0.6-4.6); Lymphocytes % 12.9 %; Mean Corpuscular HGB Conc 33.3 g/dL (31.6-35.5); Mean Corpuscular Hemoglobin 31.9 pg (28.0-33.3); Mean Platelet Volume 9.8 fL (9.4-12.4); Monocytes # 0.2 K/mcL (0.0-1.3); Monocytes % 1.7 %; Neutrophils # 8.4 K/mcL (1.6-8.9); Platelet Count 483 K/mcL (140-400); Red Blood Count 4.48 M/mcL (3.82-4.97); Red Cell Distribution Width 13.2 % (11.5-14.5); Segmented Neutrophils % 84.6 %; White Blood Count 9.9 K/mcL (4.3-11.1)
[2021-12-04 12:27] LABS: VBG HCO3 22 mEq/L (21-27); VBG PCO2 37 mmHg (41-51); VBG PH 7.38 pH Units (7.32-7.42); VBG PO2 53 mmHg (25-50)
[2021-12-04 12:28] LABS: INR 1.2
[2021-12-04 12:30] LABS: Activated Partial Thrombo Time 33.3 Seconds (26.0-36.0)
[2021-12-04 12:51] LABS: Alanine Aminotransferase 33 Units/L (7-52); Albumin 4.7 g/dL (3.5-5.7); Albumin/Globulin Ratio 1.5 (1.1-2.2); Alkaline Phosphatase 90 Units/L (34-104); Aspartate Amino Transferase 24 Units/L (13-39); BUN/Creatinine Ratio 18 (6-26); Bilirubin,Indirect 0.4 mg/dL (0.0-1.0); Bilirubin,Total 0.4 mg/dL (0.3-1.0); Blood Urea Nitrogen 14 mg/dL (6-20); Calcium 10.1 mg/dL (8.6-10.3); Carbon Dioxide 21 mEq/L (23-29); Chloride 103 mEq/L (98-107); Creatine Kinase 91 Units/L (30-223); Ethanol < 10 mg/dL (Less than 10); Globulin 3.2 g/dL (2.4-3.5); Glucose 137 mg/dL (70-105); Lipase 18 Units/L (11-82); Osmolality,Calculated 287 (280-300); Potassium 4.4 mEq/L (3.5-5.1); Sodium 137 mEq/L (136-145); Total Protein 7.9 g/dL (6.4-8.9); eGFR For African Americans > 60 (> 60); eGFR For Non-African Americans > 60 (> 60)
[2021-12-04 12:52] LABS: Troponin I < 0.03 ng/mL (< 0.04)
[2021-12-04 13:05] LABS: Thyroid Stimulating Hormone 1.948 mcIU/mL (0.340-5.600)
[2021-12-04 13:22] LABS: Amorphous Sediment,Urine Few per hpf (None-Few); Bilirubin,Urine Negative (Negative); Blood,Urine Negative (Negative); Clarity,Urine Turbid (Clear); Color,Urine Light-Yellow (Yellow); Glucose,Urine (UA) Normal (Normal); Hyaline Casts,Urine Few per lpf (None Seen); Ketones,Urine Negative (Negative); Leukocyte Esterase,Urine Negative (Negative); Mucus,Urine Few per lpf (None-Few); Nitrite,Urine Negative (Negative); PH,Urine 6.5 pH Units (5.0-8.0); Protein,Urine 50 mg/dL (Neg-Trace); RBC,Urine 0-3 per hpf (0-3); Specific Gravity,Urine 1.012 (1.010-1.025); Squamous Epithelial Cell,Urine Many per hpf (None-Few); Transitional Epi Cells,Urine Few per hpf (None-Few); Urobilinogen,Urine Normal (Normal); WBC,Urine 0-3 per hpf (0-3)
[2021-12-04 13:37] LABS: Amphetamine Screen,Urine Negative ng/mL (Cutoff=1000); Barbiturate Screen,Urine Negative ng/mL (Cutoff=200); Benzodiazepines Screen,Urine Positive ng/mL (Cutoff=200); Cannabinoid Screen,Urine Negative ng/mL (Cutoff = 50); Cocaine Screen,Urine Negative ng/mL (Cutoff= 300); Opiate Screen,Urine Negative ng/mL (Cutoff=300); Phencyclidine Screen,Urine Negative ng/mL (Cutoff=25)
[2021-12-04] MEDS ORDERED: Naloxone 0.4 MG/ML INJ IVP PRN (15:11)
[2021-12-04] MEDS: Gabapentin 300 MG CAPSULE PO SCH (18:10)
[2021-12-04] MEDS: clonazePAM 1 MG TABLET PO SCH (20:41)
[2021-12-04] MEDS ORDERED: Gabapentin 300 MG CAPSULE PO SCH (21:00)
[2021-12-05 05:12] LABS: Basophils % 0.4 %; Eosinophils # 0.2 K/mcL (0.0-0.6); Eosinophils % 1.6 %; Hematocrit 38.8 % (35.3-44.9); Immature Granulocytes % 0.2 % (0-4); Lymphocytes # 4.8 K/mcL (0.6-4.6); Mean Corpuscular HGB Conc 32.2 g/dL (31.6-35.5); Mean Corpuscular Hemoglobin 31.3 pg (28.0-33.3); Mean Platelet Volume 9.8 fL (9.4-12.4); Monocytes # 0.8 K/mcL (0.0-1.3); Monocytes % 7.4 %; Neutrophils # 4.6 K/mcL (1.6-8.9); Platelet Count 427 K/mcL (140-400); Red Cell Distribution Width 13.5 % (11.5-14.5); Segmented Neutrophils % 44.4 %; White Blood Count 10.4 K/mcL (4.3-11.1)
[2021-12-05 05:14] LABS: Hemoglobin 12.5 g/dL (11.5-15.4)
[2021-12-05 05:36] LABS: Alanine Aminotransferase 27 Units/L (7-52); Albumin/Globulin Ratio 1.6 (1.1-2.2); Alkaline Phosphatase 75 Units/L (34-104); Aspartate Amino Transferase 17 Units/L (13-39); BUN/Creatinine Ratio 23 (6-26); Bilirubin,Total 0.3 mg/dL (0.3-1.0); Blood Urea Nitrogen 17 mg/dL (6-20); Calcium 8.9 mg/dL (8.6-10.3); Carbon Dioxide 23 mEq/L (23-29); Chloride 108 mEq/L (98-107); Globulin 2.5 g/dL (2.4-3.5); Glucose 98 mg/dL (70-105); Osmolality,Calculated 290 (280-300); Potassium 3.6 mEq/L (3.5-5.1); Sodium 139 mEq/L (136-145); Total Protein 6.5 g/dL (6.4-8.9); eGFR For African Americans > 60 (> 60); eGFR For Non-African Americans > 60 (> 60)
[2021-12-05] MEDS ORDERED: *HR* Enoxaparin 40 MG/0.4 ML SYRINGE SQ SCH (06:00)
[2021-12-05 06:32] VITALS: BP 100/69; PULSE 100; TEMP 98.2; O2SAT 94
[2021-12-05] MEDS: Gabapentin 300 MG CAPSULE PO SCH (08:24)
[2021-12-05] MEDS: clonazePAM 1 MG TABLET PO SCH (08:24)
== END 2021-12-05 10:40 | disposition home or self-care (01) ==
LOC: 3BNU 11:31 → EMEROOARM 11:31 → SUATTDRO 15:21 → 3BNU 16:53
PROVIDERS: ADMIT Student in an Organized Health Care Education/Training Program; ATTEND Family Medicine